=== PATIENT | female | born 1955 | race Caucasian/White ===

== ENCOUNTER 2019-06-15 05:09 | Emergency (ER) | payer BC ==
--- NOTE | 2019-06-15 05:52 | EDM.PDOC ---
ED HPI GENERAL MEDICAL PROBLEM - General Chief Complaint: General Stated Complaint: L knee pain Time Seen by Provider: 06/15/19 05:42 Source of Information: Reports: Patient, Significant Other History Limitations: Reports: No Limitations - History of Present Illness INITIAL COMMENTS - FREE TEXT/NARRATIVE: Patient presents a little over 36 hours S/P left total knee arthroplasty with 10 /10 anterior knee pain. She says she was discharged yesterday from [facility] and felt good then. She was discharged on Tramadol and aspirin. We reviewed her discharge papers and she isn't scheduled to begin PT until next Tuesday, a full week from her surgery. She is using her LUIS M hose except at night. She denies any fever, dyspnea or numbness. She says she has no posterior leg or knee pain. She tells me she called the [facility] during the night wondering what to do and they told her to come to nearest ER for pain control because her block must be wearing off. She didn't sleep much, about an hour, so came to ER around 5:00 AM. - Related Data Allergies Allergy/AdvReac Type Severity Reaction Status Date / Time Penicillins Allergy Rash Verified 06/15/19 05:28 Home Meds: Home Meds ALPRAZolam [Alprazolam] 0.25 mg PO Q12H PRN 06/15/19 [History] Acetaminophen 650 mg PO Q4H PRN 06/15/19 [History] Aspirin [Aspirin EC] 325 mg PO BID 06/15/19 [History] Cholecalciferol (Vitamin D3) [Vitamin D3] 2,000 units PO DAILY 06/15/19 [History ] Escitalopram [Lexapro] 10 mg PO DAILY 06/15/19 [History] Ketoprofen 1 applic TOP ASDIRECTED PRN 06/15/19 [History] Metoprolol Succinate [Toprol XL 50mg] 50 mg PO DAILY 06/15/19 [History] Naproxen 500 mg PO ASDIRECTED PRN 06/15/19 [History] Polyethylene Glycol [Polyox Wsr-301] 17 gm PO DAILY PRN 06/15/19 [History] Sennosides/Docusate Sodium [Senna Plus Tablet] 1 tab PO BID PRN 06/15/19 [ History] hydroCHLOROthiazide [Hydrochlorothiazide] 12.5 mg PO DAILY 06/15/19 [History] traMADol HCl [Tramadol HCl] 50 - 100 mg PO Q6H PRN 06/15/19 [History] ED ROS GENERAL - Review of Systems Review Of Systems: See Below Constitutional: Denies: Fever, Chills, Malaise, Weakness HEENT: Reports: No Symptoms Respiratory: Denies: Shortness of Breath, Pleuritic Chest Pain Cardiovascular: Denies: Chest Pain, Lightheadedness, Syncope Endocrine: Reports: No Symptoms GI/Abdominal: Denies: Abdominal Pain, Vomiting : Denies: Dysuria, Flank Pain Musculoskeletal: Reports: Joint Pain (see HPI) Skin: Denies: Cyanosis, Jaundice, Mottled, Pallor, Diaphoresis Neurological: Denies: Confusion, Numbness, Seizure, Syncope, Trouble Speaking, Weakness Psychiatric: Denies: Agitation, Anxiety ED EXAM, GENERAL - Physical Exam Exam: See Below Exam Limited By: No Limitations General Appearance: Alert, WD/WN, No Apparent Distress Eye Exam: Bilateral Eye: EOMI, Normal Inspection, PERRL Ears: Normal External Exam, Hearing Grossly Normal Nose: Normal Inspection, No Blood Throat/Mouth: Normal Inspection, Normal Lips, Normal Voice, No Airway Compromise Head: Atraumatic, Normocephalic Neck: Normal Inspection, Full Range of Motion Respiratory/Chest: No Respiratory Distress, Lungs Clear, Normal Breath Sounds, No Accessory Muscle Use Cardiovascular: Regular Rate, Rhythm, No Murmur Back Exam: Normal Inspection, Full Range of Motion. No: CVA Tenderness (L), CVA Tenderness (R) Extremities: Normal Inspection (except left knee), Normal Range of Motion ( except left knee), No Pedal Edema, Normal Capillary Refill, Other (Left knee has no erythema but moderate swelling. No swelling at foot or ankle. EHL/FHL are intact. Distal CMS is intact. No pain with palpation of posterior leg and knee. She can tolerate knee flexion to 60 degrees. Anterior incision with narrow bandage in place without erythema. Other extremities are normal/okay.). No: Increased Warmth, Mottled, Pallor Neurological: Alert, Oriented, Normal Cognition, No Motor/Sensory Deficits Psychiatric: Normal Affect, Normal Mood Skin Exam: Warm, Dry, Intact, Normal Color, No Rash Course - Re-Assessments/Exams Free Text/Narrative Re-Assessment/Exam: 06/15/19 06:33 Patient is stable. I called and spoke with on-call ortho at [facility] in [place] and happened to get pt's surgeon, Dr. Villa. I discussed case with him and he said she should have been discharged on Percocet. He will also look into why her PT isn't going to start until next week. He assured me that his nurse will call the patient this morning during clinic hours. He said Percocet and Toradol now is good. Will give Toradol 60 mg IM. She has stopped Aleve and Ibuprofen. Will also give 2 tabs of Percocet 5/325 now. We helped her get her LUIS M hose on. Patient discharged in stable condition. Departure - Departure Time of Disposition: 06:23 Disposition: Home, Self-Care 01 Condition: Good Clinical Impression: Left anterior knee pain S/P total knee arthroplasty Qualifiers: Laterality: left Qualified Code(s): Z96.652 - Presence of left artificial knee joint - Discharge Information Additional Instructions: 1. Take pain medications as directed by your orthopedic doctor. They will call you this morning. If you don't hear from them by 9:00 AM call them to make sure they call in your prescription before the weekend. 2. Also ask them about: -when to start physical therapy; Hattie has PT at [facility] if others are not available when desired -if you should wear the LUIS M hose at night for better control of swelling 3. Ice, elevate and use TEDs and YASSINE as directed to control swelling.
[2019-06-15] MEDS ORDERED: Acetaminophen/oxyCODONE 325-5 MG Tab PO ONE (06:13)
[2019-06-15] MEDS ORDERED: Ketorolac 60 MG/2 ML SDV IM ONE (06:13)
== END 2019-06-15 06:45 | disposition home or self-care (01) ==
LOC: KA.ED 05:09
DX: M25.562 Pain in left knee (principal); Z96.652 Presence of left artificial knee joint; Z88.0 Allergy status to penicillin; Z79.82 Long term (current) use of aspirin
CPT/HCPCS: 96372; 99283; A9270-GY; J1885

== ENCOUNTER 2021-08-10 13:04 | Emergency (ER) | payer MEDICARE, BC ==
[2021-08-10 14:04] LABS: ANION GAP 17.6 mmol/L (5-15); CHLORIDE,CL 102 mmol/L (98-107); SODIUM,NA 139 mmol/L (136-145)
--- NOTE | 2021-08-10 14:14 | EDM.PDOC ---
ED HPI GENERAL MEDICAL PROBLEM - General Chief Complaint: General Stated Complaint: ELEVATED B/P AND DIZZINESS Time Seen by Provider: 08/10/21 13:41 Source of Information: Reports: Patient, Significant Other History Limitations: Reports: No Limitations - History of Present Illness INITIAL COMMENTS - FREE TEXT/NARRATIVE: Patient presents with dizziness/lightheadedness when she stands up from lying or sitting; it lasts up to 2 minutes. This has been occurring frequently for a week. She has also had a pain/ache across shoulder blades; it sometimes can be triggered by raising her arms, which then also causes dizziness. Today she had a "burning" sensation in right arm that came across her chest to upper abdomen that lasted nearly 1 minute. No chest pain, left arm/neck/jaw pain, vomiting, diarrhea. Six weeks ago she had a knee replacement and was taking oxycodone regularly which caused frequent vomiting but not in last 3 weeks. She tells me she doesn't drink much water; probably not even a 16 oz bottle a day. She is thirsty now and would drink some water. I brought her two 10-oz bottles. She used to be a smoker. 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: Other Medication(s) Other Treatments LAND ECONOMIST: xanax - Related Data Allergies Allergy/AdvReac Type Severity Reaction Status Date / Time No Known Drug Allergies Allergy Cannot Verified 08/10/21 13:06 Remember Home Meds: Home Meds ALPRAZolam [Alprazolam] 0.25 mg PO Q12H PRN 06/15/19 [History] Acetaminophen 650 mg PO Q4H PRN 06/15/19 [History] Escitalopram [Lexapro] 10 mg PO DAILY 06/15/19 [History] Ketoprofen 1 applic TOP ASDIRECTED PRN 06/15/19 [History] Metoprolol Succinate [Toprol XL 50mg] 50 mg PO DAILY 06/15/19 [History] hydroCHLOROthiazide [Hydrochlorothiazide] 12.5 mg PO DAILY 06/15/19 [History] Alendronate [Fosamax] 5 mg PO WE 08/10/21 [History] Losartan [Cozaar] 50 mg PO DAILY 08/10/21 [History] atorvaSTATin [Lipitor] 10 mg PO DAILY 08/10/21 [History] oxyCODONE 5 mg PO Q4H PRN 08/10/21 [History] Past Medical History Other MEDICAL INTERN History: tubal ligation - Past Surgical History Musculoskeletal Surgical 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: Knee Replacement Other Musculoskeletal Surgeries/Procedures:: Left knee replacement on 06/13/19 Social & Family History - Caffeine Use Caffeine Use: Reports: Coffee ED ROS GENERAL - Review of Systems Review Of Systems: See Below Constitutional: Denies: Fever, Chills HEENT: Denies: Ear Pain, Throat Pain, Vision Change Respiratory: Reports: Shortness of Breath (brieffly a couple times). Denies: Cough Cardiovascular: Reports: Lightheadedness. Denies: Chest Pain, Syncope GI/Abdominal: Denies: Diarrhea, Vomiting : Denies: Dysuria, Flank Pain Musculoskeletal: Denies: Neck Pain Skin: Denies: Cyanosis, Jaundice, Mottled, Pallor, Diaphoresis Neurological: Reports: Dizziness. Denies: Confusion, Seizure, Syncope, Trouble Speaking, Difficulty Walking Psychiatric: Reports: Anxiety. Denies: Agitation, Confusion ED EXAM, GENERAL - Physical Exam Exam: See Below Exam Limited By: No Limitations General Appearance: Alert, WD/WN, No Apparent Distress, Anxious Eye Exam: Bilateral Eye: EOMI, Normal Inspection, PERRL Ears: Normal External Exam, Hearing Grossly Normal Nose: Normal Inspection, No Blood Throat/Mouth: Normal Inspection, Normal Lips, Normal Voice, No Airway Compromise Head: Atraumatic, Normocephalic Neck: Normal Inspection, Full Range of Motion Respiratory/Chest: No Respiratory Distress, Lungs Clear, Normal Breath Sounds, No Accessory Muscle Use Cardiovascular: Regular Rate, Rhythm, No Murmur GI/Abdominal: Normal Bowel Sounds, Soft, Non-Tender, No Organomegaly, No Distention, No Abnormal Bruit, No Mass Back Exam: Full Range of Motion, Muscle Spasm (Traps are tight across shoulders). No: CVA Tenderness (L), CVA Tenderness (R), Paraspinal Tenderness, Vertebral Tenderness Extremities: Normal Inspection, Normal Range of Motion Neurological: Alert, Oriented, Normal Cognition, No Motor/Sensory Deficits Psychiatric: Normal Affect, Anxious Skin Exam: Warm, Dry, Intact, Normal Color, No Rash #1 Interpretation EKG Date: 08/10/21 Rhythm: NSR Rate (Beats/Min): 79 P-Wave: Present QRS: Other (Q waves in V1, V2) ST-T: Normal QT: Normal Course - Vital Signs Last Recorded V/S: Last Vital Signs Temp 98.3 F 08/10/21 13:06 Pulse 85 08/10/21 13:06 Resp 14 08/10/21 13:06 BP 152/82 H 08/10/21 13:06 Pulse Ox 98 08/10/21 13:06 Orthostatic Blood Pressure [ 116/67 Standing] Orthostatic Blood Pressure [ 113/68 Sitting] Orthostatic Blood Pressure [ 131/82 Supine] - Orders/Labs/Meds Orders: Active Orders 24 hr Category Date Time Status Orthostatic Vital Signs [RC] ASDIRECTED Care 08/10/21 13:20 Active EKG 12 Lead [EK] Stat Ther 08/10/21 13:20 Ordered Labs: Laboratory Tests 08/10/21 08/10/21 08/10/21 Range/Units 13:35 13:35 13:35 WBC 6.46 (5.00-10.00) 10^3/uL RBC 3.99 (3.80-5.50) 10^6/uL Hgb 12.0 (12.0-16.0) g/dL Hct 36.0 L (37.0-47.0) % MCV 90.2 (82.0-92.0) fL MCH 30.1 (27.0-31.0) pg MCHC 33.3 (32.0-36.0) g/dL RDW 12.7 (11.5-14.5) % Plt Count 211 (150-400) 10^3/uL MPV 9.8 (7.4-10.4) fL Immature Gran % (Auto) 0.2 (0.0-5.0) % Neut % (Auto) 64.6 (50.0-70.0) % Lymph % (Auto) 25.4 (20.0-40.0) % Duval % (Auto) 7.9 (2.0-8.0) % Eos % (Auto) 1.1 (1.0-3.0) % Baso % (Auto) 0.8 (0.0-1.0) % Neut # (Auto) 4.18 (2.50-7.00) 10^3/uL Lymph # (Auto) 1.64 (1.00-4.00) 10^3/uL Duval # (Auto) 0.51 (0.10-0.80) 10^3/uL Eos # (Auto) 0.07 L (0.10-0.30) 10^3/uL Baso # (Auto) 0.05 (0.00-0.10) 10^3/uL Immature Gran # (Auto) 0.01 (0.00-0.50) 10^3/uL Sodium 139 (136-145) mmol/L Potassium 3.9 (3.5-5.1) mmol/L Chloride 102 (98-107) mmol/L Carbon Dioxide 23.3 (21.0-32.0) mmol/L Anion Gap 17.6 H (5-15) mmol/L BUN 11 (7-18) mg/dL Creatinine 0.81 (0.51-1.17) mg/dL Est Cr Clr Drug Dosing 51.55 mL/min Estimated GFR (MDRD) > 60 mL/min Glucose 91 (70-140) mg/dL Calcium 9.1 (8.7-10.3) mg/dL Troponin I High Sens 7.700 (0-51.000) pg/mL - Re-Assessments/Exams Free Text/Narrative Re-Assessment/Exam: 08/10/21 14:18 Orthostatic pressures showed a significant drop with standing and sitting compared to supine. 08/10/21 15:00 Patient drank 20 oz of water. Labs, CXR, EKG okay. She is feeling much better now. I watched while she stood up from exam table; she developed a little lightheadedness for about 30 seconds then resolved. We discussed findings and likely cause of dehydration/hypovolemia. She hasn't ever heard this before. I advised her to drink 8 cups of water daily. She made an appointment with Misa at [facility] tomorrow so will recheck there. Discharged to home in stable condition. Departure - Departure Time of Disposition: 14:55 Disposition: Home, Self-Care 01 Condition: Good Clinical Impression: Hypovolemia dehydration, Anxiety - Discharge Information Referrals: Vivian Parks MD [Primary Care Provider] - Forms: ED Department Discharge Additional Instructions: Drink 8 cups of water daily. Follow up in 1-2 days with your PCP if symptoms persist. If worsening, check in clinic or ER as needed. Sepsis Event Note (ED) - Evaluation Sepsis Screening Result: No Definite Risk - Focused Exam Vital Signs: Vital Signs Temp Pulse Resp BP Pulse Ox 08/10/21 13:06 98.3 F 85 14 152/82 H 98 - My Orders Last 24 Hours: My Active Orders 08/10/21 13:20 Orthostatic Vital Signs [RC] ASDIRECTED EKG 12 Lead [EK] Stat - Assessment/Plan Last 24 Hours: My Active Orders 08/10/21 13:20 Orthostatic Vital Signs [RC] ASDIRECTED EKG 12 Lead [EK] Stat
--- NOTE | 2021-08-10 14:37 | CR ---
[id number] RAD/RAD Chest PA And Lateral EXAM: RAD Chest PA And Lateral CLINICAL DATA: SHORTNESS OF BREATH COMPARISON: No previous similar exam is available. FINDINGS: The lungs are clear. The cardiomediastinal contour is normal. The regional bones and soft tissues are unremarkable. IMPRESSION: NO ACUTE PROCESS. Josiah Castaneda MD 08/10/21 [id number] Thank you for allowing us to participate in the care of your patient.
== END 2021-08-10 15:06 | disposition home or self-care (01) ==
LOC: KA.ED 13:04
DX: E86.0 Dehydration (principal); E86.1 Hypovolemia; F41.9 Anxiety disorder, unspecified
CPT/HCPCS: 36415; 71046; 80048; 84484; 85025; 93005; 93010; 99284; 99284-25

== ENCOUNTER 2021-09-13 03:58 | Emergency (ER) | payer MEDICARE, BC ==
[2021-09-13] MEDS: Sodium Chloride 0.9% 10 ML Syringe FLUSH PRN (04:30)
--- NOTE | 2021-09-13 04:32 | EDM.PDOC ---
ED HPI GENERAL MEDICAL PROBLEM - General Chief Complaint: Headache Stated Complaint: HEADACHE Time Seen by Provider: 09/13/21 04:10 Source of Information: Reports: Patient History Limitations: Reports: No Limitations - History of Present Illness INITIAL COMMENTS - FREE TEXT/NARRATIVE: 66 YO WF PRESENTS TO ER COMPLAINING OF LEFT FRONTAL HEADACHE WHICH BEGAN YESTERDAY AROUND 3PM. PT WITH PMH OF MIGRAINE HEADACHES BUT STATES SHE HASN'T HAD ONE IN AWHILE. PT REPORTS SHE CAN TYPICALLY GET RID OF HEADACHE WITH EXCEDRIN MIGRAINE BUT THIS TIME SHE HASN'T BEEN ABLE TO TAKE IT WITHOUT VOMITING. PT DENIES HEADACHE INJURY, NO FEVER/CHILLS, NO URI SYMPTOMS, AND HAS BEEN COMPLIANT WITH HER HOME BP MEDICATIONS. PT REPORTS PAIN IS BEHIND HER LEFT EYE WITH ASSOCIATED NAUSEA/VOMITING. Onset Date: 09/12/21 Onset Time: 15:00 Duration: Hour(s): (13) Location: Reports: Head Quality: Reports: Ache Severity: Moderate Improves with: Reports: None Worsens with: Reports: Other (VOMITINGG) Associated Symptoms: Reports: No Other Symptoms, Headaches, Nausea/Vomiting. Denies: Confusion, Cough, Fever/Chills, Weakness Headache Pain Score (Numeric/FACES): 8 - Related Data Allergies Allergy/AdvReac Type Severity Reaction Status Date / Time No Known Drug Allergies Allergy Cannot Verified 09/13/21 04:03 Remember Home Meds: Home Meds ALPRAZolam [Alprazolam] 0.25 mg PO Q12H PRN 06/15/19 [History] Acetaminophen 650 mg PO Q4H PRN 06/15/19 [History] Escitalopram [Lexapro] 10 mg PO DAILY 06/15/19 [History] Ketoprofen 1 applic TOP ASDIRECTED PRN 06/15/19 [History] Alendronate [Fosamax] 5 mg PO WE 08/10/21 [History] Losartan [Cozaar] 50 mg PO DAILY 08/10/21 [History] atorvaSTATin [Lipitor] 10 mg PO DAILY 08/10/21 [History] Ondansetron [Zofran ODT] 4 mg PO Q6H PRN #10 tab.dis 09/13/21 [Rx] Past Medical History HEENT 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: Impaired Vision Cardiovascular 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: High Cholesterol, Hypertension Gastrointestinal 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: Gastritis, GERD 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 CONSULTANT 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: 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 (See Below) Other INFORMATICS CONSULTANT History: tubal ligation Psychiatric 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: Anxiety - Past Surgical History Musculoskeletal Surgical 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: Knee Replacement Other Musculoskeletal Surgeries/Procedures:: Left knee replacement on 06/13/19 Social & Family History - Tobacco Use Tobacco Use Status *Q: Former Tobacco User Used Tobacco, but Quit: Yes Month/Year Tobacco Last Used: 5 years ago - Caffeine Use Caffeine Use: Reports: Coffee - Recreational Drug Use Recreational Drug Use: No ED ROS GENERAL - Review of Systems Review Of Systems: See Below Constitutional: Reports: No Symptoms HEENT: Reports: No Symptoms Respiratory: Reports: No Symptoms Cardiovascular: Reports: No Symptoms Endocrine: Reports: No Symptoms GI/Abdominal: Reports: Nausea, Vomiting : Reports: No Symptoms Musculoskeletal: Reports: No Symptoms Skin: Reports: No Symptoms Neurological: Reports: Headache Psychiatric: Reports: No Symptoms Hematologic/Lymphatic: Reports: No Symptoms Immunologic: Reports: No Symptoms - Physical Exam Exam: See Below Exam Limited By: No Limitations General Appearance: Alert, WD/WN, No Apparent Distress Eye Exam: Bilateral Eye: EOMI, PERRL Nose: Normal Inspection, Normal Mucosa, No Blood Throat/Mouth: Normal Inspection, Normal Lips, Normal Teeth, Normal Gums, Normal Oropharynx, Normal Voice, No Airway Compromise Head Exam: Atraumatic, Normocephalic Neck: Normal Inspection, Supple, Non-Tender, Full Range of Motion Respiratory/Chest: No Respiratory Distress, Lungs Clear, Normal Breath Sounds, No Accessory Muscle Use, Chest Non-Tender Cardiovascular: Normal Peripheral Pulses, Regular Rate, Rhythm, No Edema, No Gallop, No JVD, No Murmur, No Rub GI/Abdominal: Normal Bowel Sounds, Soft, Non-Tender, No Organomegaly, No Distention, No Abnormal Bruit, No Mass Neuro Exam (Abbreviated): Alert, Oriented, CN II-XII Intact, Normal Cognition, Normal Gait, No Motor/Sensory Deficits Extremities: Normal Inspection, Normal Range of Motion, Non-Tender, No Pedal Edema, Normal Capillary Refill Psychiatric: Normal Affect, Normal Mood Skin Exam: Warm, Dry, Intact, Normal Color, No Rash Course - Vital Signs Last Recorded V/S: Last Vital Signs Temp 97.7 F 09/13/21 03:59 Pulse 83 09/13/21 03:59 Resp 20 09/13/21 03:59 BP 147/88 H 09/13/21 03:59 Pulse Ox 99 09/13/21 03:59 - Orders/Labs/Meds Orders: Active Orders 24 hr Category Date Time Status Peripheral IV Care [RC] . DIRECTED Care 09/13/21 04:25 Ordered Sodium Chloride 0.9% @ 999 MLS/HR (1000ml) Med 09/13/21 04:32 Ordered Sodium Chloride 0.9% [Normal Saline] 1,000 ml IV .BOLUS Sodium Chloride 0.9% [Saline Flush] Med 09/13/21 04:25 Ordered 10 ml FLUSH Q8HR PRN Peripheral IV Insertion Adult [OM.PC] Routine Oth 09/13/21 04:25 Ordered Medication Orders Sodium Chloride (Normal Saline) 1,000 mls @ 999 mls/hr IV .BOLUS ONE Stop: 09/13/21 05:32 Last Admin: 09/13/21 04:45 Dose: 999 mls/hr Documented by: Sodium Chloride (Sodium Chloride 0.9% 10 Ml Syringe) 10 ml FLUSH Q8HR PRN PRN Reason: keep vein open Last Admin: 09/13/21 04:30 Dose: 10 ml Documented by: Meds: Medications Generic Name Dose Route Start Last Admin Trade Name Freq PRN Reason Stop Dose Admin Sodium Chloride 1,000 mls @ 999 mls/hr 09/13/21 04:32 09/13/21 04:45 Normal Saline IV 09/13/21 05:32 999 mls/hr .BOLUS ONE Administration Sodium Chloride 10 ml 09/13/21 04:25 09/13/21 04:30 Sodium Chloride 0.9% 10 Ml Syringe FLUSH 10 ml Q8HR PRN Administration keep vein open Discontinued Medications Generic Name Dose Route Start Last Admin Trade Name Freq PRN Reason Stop Dose Admin Diphenhydramine HCl 50 mg 09/13/21 04:25 09/13/21 04:44 Diphenhydramine 50 Mg/Ml Sdv IVPUSH 09/13/21 04:26 50 mg ONETIME ONE Administration Ketorolac Tromethamine 30 mg 09/13/21 04:25 09/13/21 04:38 Ketorolac 30 Mg/Ml Sdv IVPUSH 09/13/21 04:26 30 mg ONETIME ONE Administration Ondansetron HCl 4 mg 09/13/21 04:25 09/13/21 04:37 Ondansetron 4 Mg/2 Ml Sdv IVPUSH 09/13/21 04:26 4 mg ONETIME ONE Administration - Re-Assessments/Exams Free Text/Narrative Re-Assessment/Exam: 09/13/21 05:00 PT REPORTS SIGNIFICANT IMPROVEMENT AFTER IV MEDICATIONS. PT REPORTS NAUSEA/VOMITING RESOLVED, HEADACHE IS 1-2/10. PT RESTING COMFORTABLY 09/13/21 05:02 PT DISCHARGED WITH ZOFRAN 4MG ODT #2 TAKES Q6 PRN VOMITING. PT ALSO GIVEN PRESCRIPTION FOR FUTURE EPISODES WITH INSTRUCTIONS FOR ADMINISTRATION AT HOME Departure - Departure Time of Disposition: 05:03 Disposition: Home, Self-Care 01 Condition: Good Clinical Impression: Migraine - Discharge Information Prescriptions: Ondansetron [Zofran ODT] 4 mg PO Q6H PRN #10 tab.dis PRN Reason: Vomiting Instructions: Migraine Headache, [id number] Forms: ED Department Discharge Additional Instructions: 1. DISCHARGE HOME 2. REST TODAY AND INCREASE ORAL FLUIDS 3. ZOFRAN 4MG ODT SL EVERY 6 HOURS NEEDED FOR VOMITING 4. FOLLOW UP WITH PCP NEEDED FOR FURTHER EVALUATION AND TREATMENT 5. RETURN TO ER FOR WORSENING SYMPTOMS Sepsis Event Note (ED) - Evaluation Sepsis Screening Result: No Definite Risk - Focused Exam Vital Signs: Vital Signs Temp Pulse Resp BP Pulse Ox 09/13/21 03:59 97.7 F 83 20 147/88 H 99 - My Orders Last 24 Hours: My Active Orders 09/13/21 04:25 Peripheral IV Care [RC] . DIRECTED Sodium Chloride 0.9% [Saline Flush] 10 ml FLUSH Q8HR PRN Peripheral IV Insertion Adult [OM.PC] Routine 09/13/21 04:32 Sodium Chloride 0.9% @ 999 MLS/HR (1000ml) Sodium Chloride 0.9% [Normal Saline] 1,000 ml IV .BOLUS - Assessment/Plan Last 24 Hours: My Active Orders 09/13/21 04:25 Peripheral IV Care [RC] . DIRECTED Sodium Chloride 0.9% [Saline Flush] 10 ml FLUSH Q8HR PRN Peripheral IV Insertion Adult [OM.PC] Routine 09/13/21 04:32 Sodium Chloride 0.9% @ 999 MLS/HR (1000ml) Sodium Chloride 0.9% [Normal Saline] 1,000 ml IV .BOLUS Assessment:: 1. MIGRAINE HEADACHE Plan: 1. DISCHARGE HOME 2. REST TODAY AND INCREASE ORAL FLUIDS 3. ZOFRAN 4MG ODT SL EVERY 6 HOURS NEEDED FOR VOMITING 4. FOLLOW UP WITH PCP NEEDED FOR FURTHER EVALUATION AND TREATMENT 5. RETURN TO ER FOR WORSENING SYMPTOMS
[2021-09-13] MEDS: Ondansetron 4 MG/2 ML SDV IVPUSH ONE (04:37)
[2021-09-13] MEDS: Ketorolac 30 MG/ML SDV IVPUSH ONE (04:38)
[2021-09-13] MEDS: diphenhydrAMINE 50 MG/ML SDV IVPUSH ONE (04:44)
[2021-09-13] MEDS: Sodium Chloride 0.9% 1,000 ML IV ONE (04:45)
[2021-09-13] MEDS: Ondansetron 4 MG Tab.DIS PO SCH (05:21)
[2021-09-13] MEDS: Ondansetron 4 MG Tab.DIS PO ONE (05:22)
== END 2021-09-13 05:55 | disposition home or self-care (01) ==
LOC: KA.ED 03:58
DX: G43.909 Migraine, unspecified, not intractable, without status migrainosus (principal); E78.00 Pure hypercholesterolemia, unspecified; I10 Essential (primary) hypertension; Z87.891 Personal history of nicotine dependence; Z79.899 Other long term (current) drug therapy
CPT/HCPCS: 96374; 96375; 99283; 99283-25; A9270-GY; J1200; J1885; J2405; J7030

== ENCOUNTER 2023-05-06 18:15 | Emergency (ER) | payer BC, MEDICARE ==
[2023-05-06] MEDS ORDERED: Sodium Chloride 0.9% 1,000 ML IV ONE (18:28)
[2023-05-06] MEDS ORDERED: Sodium Chloride 0.9% 10 ML Syringe FLUSH PRN (18:54)
[2023-05-06 19:00] LABS: BASOPHILS ABSOLUTE AUTO 0.03 10^3/uL (0.00-0.10); BASOPHILS PERCENT AUTO 0.4 % (0.0-1.0); EOSINOPHILS ABSOLUTE AUTO 0.09 10^3/uL (0.10-0.30); EOSINOPHILS PERCENT AUTO 1.1 % (1.0-3.0); HEMATOCRIT 38.1 % (37.0-47.0); HEMOGLOBIN 12.9 g/dL (12.0-16.0); IMMATURE GRAN ABSOLUTE AUTO 0.03 10^3/uL (0.00-0.50); IMMATURE GRAN PERCENT AUTO 0.4 % (0.0-5.0); LYMPHOCYTES ABSOLUTE AUTO 2.26 10^3/uL (1.00-4.00); LYMPHOCYTES PERCENT AUTO 28.6 % (20.0-40.0); MEAN CORPUSCULAR HEMOGLOBIN 29.7 pg (27.0-31.0); MEAN CORPUSCULAR HGB CONC 33.9 g/dL (32.0-36.0); MEAN CORPUSCULAR VOLUME 87.8 fL (82.0-92.0); MEAN PLATELET VOLUME 10.6 fL (7.4-10.4); MONOCYTES ABSOLUTE AUTO 0.64 10^3/uL (0.10-0.80); MONOCYTES PERCENT AUTO 8.1 % (2.0-8.0); NEUTROPHILS ABSOLUTE AUTO 4.84 10^3/uL (2.50-7.00); NEUTROPHILS PERCENT AUTO 61.4 % (50.0-70.0); PLATELET COUNT,PLT 239 10^3/uL (150-400); RED BLOOD CELL COUNT 4.34 10^6/uL (3.80-5.50); WHITE BLOOD CELL COUNT,WBC 7.89 10^3/uL (5.00-10.00)
[2023-05-06 19:12] LABS: ALBUMIN 3.81 g/dL (3.40-5.00); ANION GAP 16.8 mmol/L (5-15); BILIRUBIN TOTAL 0.4 mg/dL (0.2-1.0); CARBON DIOXIDE,CO2 23.8 mmol/L (21.0-32.0); CREATININE 0.98 mg/dL (0.51-1.17); EST CRCL DRUG DOSING (CG) 42.03 mL/min; POTASSIUM,K 3.6 mmol/L (3.5-5.1); PROTEIN TOTAL,TP 7.2 g/dL (6.4-8.2)
== END 2023-05-06 19:15 ==
LOC: KA.ED 18:15
DX: T42.4X2A Poisoning by benzodiazepines, intentional self-harm, initial encounter (principal); F32.A Depression, unspecified; F41.9 Anxiety disorder, unspecified; E78.00 Pure hypercholesterolemia, unspecified; I10 Essential (primary) hypertension; K21.9 Gastro-esophageal reflux disease without esophagitis; Z88.0 Allergy status to penicillin; Z79.899 Other long term (current) drug therapy
CPT/HCPCS: 80053; 85025; 93005; 93010; 99284; 99285; J7030

== ENCOUNTER 2024-11-22 12:34 | Emergency (ER) | payer MEDICARE ==
[2024-11-22] MEDS ORDERED: Sodium Chloride 0.9% 10 ML Syringe FLUSH PRN (12:38)
[2024-11-22 12:47] LABS: EOSINOPHILS ABSOLUTE AUTO 0.07 10^3/uL (0.10-0.30); EOSINOPHILS PERCENT AUTO 0.8 % (1.0-3.0); HEMATOCRIT 41.1 % (37.0-47.0); HEMOGLOBIN 14.3 g/dL (12.0-16.0); IMMATURE GRAN ABSOLUTE AUTO 0.04 10^3/uL (0.00-0.04); IMMATURE GRAN PERCENT AUTO 0.5 % (0.0-0.4); LYMPHOCYTES ABSOLUTE AUTO 0.29 10^3/uL (1.00-4.00); LYMPHOCYTES PERCENT AUTO 3.5 % (20.0-40.0); MEAN CORPUSCULAR HEMOGLOBIN 30.5 pg (27.0-31.0); MEAN CORPUSCULAR HGB CONC 34.8 g/dL (32.0-36.0); MEAN CORPUSCULAR VOLUME 87.6 fL (82.0-92.0); MEAN PLATELET VOLUME 10.7 fL (7.4-10.4); MONOCYTES ABSOLUTE AUTO 0.09 10^3/uL (0.10-0.80); MONOCYTES PERCENT AUTO 1.1 % (2.0-8.0); NEUTROPHILS ABSOLUTE AUTO 7.82 10^3/uL (2.50-7.00); NEUTROPHILS PERCENT AUTO 94.1 % (50.0-70.0); PLATELET COUNT,PLT 234 10^3/uL (150-400); RED BLOOD CELL COUNT 4.69 10^6/uL (3.80-5.50); WHITE BLOOD CELL COUNT,WBC 8.31 10^3/uL (5.00-10.00)
[2024-11-22] MEDS: Sodium Chloride 0.9% 1,000 ML IV ONE (12:53)
[2024-11-22] MEDS: Famotidine 20 MG/2 ML SDV IVPUSH ONE (12:55)
[2024-11-22] MEDS: Ondansetron 4 MG/2 ML SDV IVPUSH ONE (13:02)
[2024-11-22 13:10] LABS: ALBUMIN 4.55 g/dL (3.40-5.00); ANION GAP 19.4 mmol/L (5-15); BILIRUBIN TOTAL 0.8 mg/dL (0.2-1.0); C-REACTIVE PROTEIN 1.31 mg/dL (0.00-0.50); CALCIUM 9.9 mg/dL (8.7-10.3); CARBON DIOXIDE,CO2 25.1 mmol/L (21.0-32.0); CREATININE 0.72 mg/dL (0.51-1.17); EST CRCL DRUG DOSING (CG) 52.97 mL/min; POTASSIUM,K 3.5 mmol/L (3.5-5.1)
[2024-11-22] MEDS: Iopamidol 755 Mg/ML 100 ML Bottle IV ONE ×2 (13:40→13:41)
[2024-11-22] MEDS: Sodium Chloride 0.9% 50 ML IV SCH (13:41)
[2024-11-22] MEDS ORDERED: Sodium Chloride 0.9% 50 ML IV SCH (13:45)
[2024-11-22] MEDS: LORazepam 2 MG/ML SDV IVPUSH ONE (14:20)
[2024-11-22] MEDS: Dicyclomine 20 MG/2 ML SDV IM ONE (14:21)
== END 2024-11-22 15:08 | disposition home or self-care (01) ==
LOC: KA.ED 12:34 → SUPCPDRO 12:34 → KA.ED 15:08
DX: N80.9 Endometriosis, unspecified (principal); R11.2 Nausea with vomiting, unspecified; I10 Essential (primary) hypertension; E78.00 Pure hypercholesterolemia, unspecified; K21.9 Gastro-esophageal reflux disease without esophagitis; Z79.899 Other long term (current) drug therapy; Z88.0 Allergy status to penicillin
CPT/HCPCS: 36415; 74177; 80053; 82150; 83690; 84484; 85025; 86140; 87428-QW; 93010; 96361; 96372; 96374; 96375; 99284; 99284-25; J0500; J2060; J2405; J3490; J7030; Q9967

== ENCOUNTER 2024-11-23 19:42 | Emergency (ER) | payer MEDICARE ==
[2024-11-23] MEDS ORDERED: Sodium Chloride 0.9% 10 ML Syringe FLUSH PRN (19:44)
[2024-11-23] MEDS ORDERED: Naloxone 0.4 MG/ML SDV IVPUSH PRN (19:45)
[2024-11-23] MEDS: Ondansetron 4 MG/2 ML SDV IVPUSH ONE (20:07)
[2024-11-23] MEDS: HYDROmorphone 1 MG/ML Syringe IVPUSH ONE (20:08)
[2024-11-23] MEDS: Sodium Chloride 0.9% 1,000 ML IV ONE (20:08)
[2024-11-23 20:09] LABS: BASOPHILS ABSOLUTE AUTO 0.03 10^3/uL (0.00-0.10); BASOPHILS PERCENT AUTO 0.3 % (0.0-1.0); EOSINOPHILS ABSOLUTE AUTO 0.04 10^3/uL (0.10-0.30); EOSINOPHILS PERCENT AUTO 0.4 % (1.0-3.0); HEMATOCRIT 40.1 % (37.0-47.0); HEMOGLOBIN 14.1 g/dL (12.0-16.0); IMMATURE GRAN ABSOLUTE AUTO 0.02 10^3/uL (0.00-0.04); IMMATURE GRAN PERCENT AUTO 0.2 % (0.0-0.4); LYMPHOCYTES ABSOLUTE AUTO 0.95 10^3/uL (1.00-4.00); LYMPHOCYTES PERCENT AUTO 9.2 % (20.0-40.0); MEAN CORPUSCULAR HEMOGLOBIN 30.8 pg (27.0-31.0); MEAN CORPUSCULAR HGB CONC 35.2 g/dL (32.0-36.0); MEAN CORPUSCULAR VOLUME 87.6 fL (82.0-92.0); MEAN PLATELET VOLUME 10.7 fL (7.4-10.4); MONOCYTES ABSOLUTE AUTO 0.74 10^3/uL (0.10-0.80); MONOCYTES PERCENT AUTO 7.2 % (2.0-8.0); NEUTROPHILS ABSOLUTE AUTO 8.51 10^3/uL (2.50-7.00); NEUTROPHILS PERCENT AUTO 82.7 % (50.0-70.0); PLATELET COUNT,PLT 225 10^3/uL (150-400); RED BLOOD CELL COUNT 4.58 10^6/uL (3.80-5.50); RED CELL DISTRIBUTION WIDTH 13.1 % (11.5-14.5); WHITE BLOOD CELL COUNT,WBC 10.29 10^3/uL (5.00-10.00)
[2024-11-23 20:23] LABS: ALBUMIN 4.46 g/dL (3.40-5.00); ANION GAP 18.6 mmol/L (5-15); BILIRUBIN TOTAL 0.7 mg/dL (0.2-1.0); C-REACTIVE PROTEIN 3.01 mg/dL (0.00-0.50); CALCIUM 9.9 mg/dL (8.7-10.3); CARBON DIOXIDE,CO2 23.3 mmol/L (21.0-32.0); CREATININE 0.9 mg/dL (0.51-1.17); EST CRCL DRUG DOSING (CG) 42.38 mL/min; POTASSIUM,K 2.9 mmol/L (3.5-5.1); PROTEIN TOTAL,TP 7.9 g/dL (6.4-8.2)
[2024-11-23 21:01] LABS: BILIRUBIN,URINE SMALL (NEGATIVE); COLOR,URINE YELLOW (YELLOW); GLUCOSE,URINE NEGATIVE (NEGATIVE); KETONES,URINE TRACE mg/dL (NEGATIVE); LEUKOCYTE ESTERASE,URINE SMALL (NEGATIVE); NITRITE,URINE NEGATIVE (NEGATIVE); OCCULT BLOOD,URINE SMALL (NEGATIVE); PROTEIN,URINE 100 mg/dL (NEGATIVE)
[2024-11-23 21:04] LABS: APPEARANCE,URINE SLIGHTLY CLOUDY (CLEAR)
[2024-11-23 21:09] LABS: BACTERIA,URINE FEW /HPF (NONE TO FEW); EPITHELIAL CELLS,URINE FEW /LPF; GRANULAR CASTS,URINE RARE; HYALINE CASTS,URINE RARE; MUCUS,URINE FEW /LPF (NEGATIVE); WBC,URINE 30-40 /HPF (0-5)
[2024-11-23] MEDS: HYDROmorphone 2 MG Tab PO PRN (21:45)
[2024-11-23] MEDS: Ondansetron 4 MG Tab.DIS PO ONE (21:46)
== END 2024-11-23 21:53 | disposition home or self-care (01) ==
LOC: KA.ED 19:42
DX: K52.9 Noninfective gastroenteritis and colitis, unspecified (principal); I10 Essential (primary) hypertension; I25.10 Atherosclerotic heart disease of native coronary artery without angina pectoris; E78.00 Pure hypercholesterolemia, unspecified; Z96.653 Presence of artificial knee joint, bilateral; Z88.0 Allergy status to penicillin; Z79.51 Long term (current) use of inhaled steroids; Z79.899 Other long term (current) drug therapy
CPT/HCPCS: 80053; 81001; 82150; 83690; 85025; 86140; 87086; 96361; 96374; 96375; 99284; A9270; J1171; J2405; J7030

== ENCOUNTER 2025-02-21 14:12 | Emergency (ER) | payer MEDICARE ==
[2025-02-21] MEDS ORDERED: Sodium Chloride 0.9% 10 ML Syringe FLUSH PRN (14:21)
[2025-02-21] MEDS ORDERED: Naloxone 0.4 MG/ML SDV IVPUSH PRN (14:24)
[2025-02-21 14:30] LABS: BASOPHILS ABSOLUTE AUTO 0.02 10^3/uL (0.00-0.10); BASOPHILS PERCENT AUTO 0.3 % (0.0-1.0); HEMATOCRIT 38.7 % (37.0-47.0); HEMOGLOBIN 13.5 g/dL (12.0-16.0); IMMATURE GRAN ABSOLUTE AUTO 0.02 10^3/uL (0.00-0.04); IMMATURE GRAN PERCENT AUTO 0.3 % (0.0-0.4); LYMPHOCYTES PERCENT AUTO 10.1 % (20.0-40.0); MEAN CORPUSCULAR HEMOGLOBIN 30.3 pg (27.0-31.0); MEAN CORPUSCULAR HGB CONC 34.9 g/dL (32.0-36.0); MEAN CORPUSCULAR VOLUME 86.8 fL (82.0-92.0); MEAN PLATELET VOLUME 10.3 fL (7.4-10.4); MONOCYTES ABSOLUTE AUTO 0.17 10^3/uL (0.10-0.80); MONOCYTES PERCENT AUTO 2.1 % (2.0-8.0); NEUTROPHILS ABSOLUTE AUTO 6.91 10^3/uL (2.50-7.00); NEUTROPHILS PERCENT AUTO 87.2 % (50.0-70.0); PLATELET COUNT,PLT 239 10^3/uL (150-400); RED BLOOD CELL COUNT 4.46 10^6/uL (3.80-5.50); RED CELL DISTRIBUTION WIDTH 12.2 % (11.5-14.5); WHITE BLOOD CELL COUNT,WBC 7.92 10^3/uL (5.00-10.00)
[2025-02-21] MEDS: Sodium Chloride 0.9% 1,000 ML IV ONE (14:34)
[2025-02-21] MEDS: HYDROmorphone 1 MG/ML Syringe IVPUSH ONE (14:34)
[2025-02-21] MEDS: Ondansetron 4 MG/2 ML SDV IVPUSH ONE (14:36)
[2025-02-21] MEDS: Alum Hydrox/Mag Hydrox/Simeth 30 ML, Lidocaine 2% 15 ML PO ONE (14:48)
[2025-02-21] MEDS: Famotidine 20 MG/2 ML SDV IVPUSH ONE (14:49)
[2025-02-21 14:50] LABS: ALANINE AMINOTRANSFERASE,ALT 28 U/L (14-63); ALKALINE PHOSPHATASE 81 U/L (46-116); AMYLASE 114 U/L (25-125); ANION GAP 17.8 mmol/L (5-15); ASPARTATE AMNIOTRANSFERASE,AST 22 U/L (15-37); BILIRUBIN TOTAL 0.8 mg/dL (0.2-1.0); BLOOD UREA NITROGEN,BUN 16 mg/dL (7-18); CALCIUM 10.1 mg/dL (8.7-10.3); CARBON DIOXIDE,CO2 22.8 mmol/L (21.0-32.0); CHLORIDE,CL 102 mmol/L (98-107); GLUCOSE RANDOM 143 mg/dL (70-140); LIPASE 40 U/L (16-77); POTASSIUM,K 3.6 mmol/L (3.5-5.1); PROTEIN TOTAL,TP 7.6 g/dL (6.4-8.2); SODIUM,NA 139 mmol/L (136-145)
[2025-02-21 14:53] LABS: ESTIMATED GFR 69 mL/min (>=60)
[2025-02-21] MEDS: busPIRone 10 MG Tab PO ONE (16:03)
[2025-02-21] MEDS: ALPRAZolam 0.25 MG Tab PO ONE (16:03)
[2025-02-21] MEDS: Pantoprazole 40 MG Tab.CR PO ONE (16:36)
[2025-02-21] MEDS ORDERED: Ondansetron 4 MG/2 ML SDV ONE (18:12)
== END 2025-02-21 16:55 | disposition home or self-care (01) ==
LOC: KA.ED 14:12
DX: K21.9 Gastro-esophageal reflux disease without esophagitis (principal); E78.00 Pure hypercholesterolemia, unspecified; I25.10 Atherosclerotic heart disease of native coronary artery without angina pectoris; I10 Essential (primary) hypertension; Z88.0 Allergy status to penicillin; Z79.899 Other long term (current) drug therapy; Z87.891 Personal history of nicotine dependence
CPT/HCPCS: 36415; 80053; 82150; 83605; 83690; 84484; 85025; 96361; 96374; 96375; 99285-25; A9270-GY; J1171; J2405; J7030

== ENCOUNTER 2025-02-22 14:24 | Emergency (ER) | payer MEDICARE ==
[2025-02-22] MEDS ORDERED: Naloxone 0.4 MG/ML SDV IVPUSH PRN (14:37)
[2025-02-22] MEDS: HYDROmorphone 1 MG/ML Syringe IVPUSH ONE (14:47)
[2025-02-22] MEDS: Ondansetron 4 MG/2 ML SDV IVPUSH ONE (14:47)
[2025-02-22 14:59] LABS: BASOPHILS ABSOLUTE AUTO 0.03 10^3/uL (0.00-0.10); BASOPHILS PERCENT AUTO 0.4 % (0.0-1.0); HEMATOCRIT 37.7 % (37.0-47.0); HEMOGLOBIN 13.3 g/dL (12.0-16.0); IMMATURE GRAN ABSOLUTE AUTO 0.02 10^3/uL (0.00-0.04); IMMATURE GRAN PERCENT AUTO 0.3 % (0.0-0.4); LYMPHOCYTES ABSOLUTE AUTO 1.25 10^3/uL (1.00-4.00); LYMPHOCYTES PERCENT AUTO 16.3 % (20.0-40.0); MEAN CORPUSCULAR HEMOGLOBIN 30.8 pg (27.0-31.0); MEAN CORPUSCULAR HGB CONC 35.3 g/dL (32.0-36.0); MEAN CORPUSCULAR VOLUME 87.3 fL (82.0-92.0); MEAN PLATELET VOLUME 10.6 fL (7.4-10.4); MONOCYTES ABSOLUTE AUTO 0.38 10^3/uL (0.10-0.80); MONOCYTES PERCENT AUTO 4.9 % (2.0-8.0); NEUTROPHILS ABSOLUTE AUTO 6.01 10^3/uL (2.50-7.00); NEUTROPHILS PERCENT AUTO 78.1 % (50.0-70.0); PLATELET COUNT,PLT 240 10^3/uL (150-400); RED BLOOD CELL COUNT 4.32 10^6/uL (3.80-5.50); RED CELL DISTRIBUTION WIDTH 12.3 % (11.5-14.5); WHITE BLOOD CELL COUNT,WBC 7.69 10^3/uL (5.00-10.00)
[2025-02-22 15:15] LABS: ALANINE AMINOTRANSFERASE,ALT 25 U/L (14-63); ALKALINE PHOSPHATASE 78 U/L (46-116); ANION GAP 14.9 mmol/L (5-15); ASPARTATE AMNIOTRANSFERASE,AST 24 U/L (15-37); BILIRUBIN TOTAL 0.7 mg/dL (0.2-1.0); BLOOD UREA NITROGEN,BUN 15 mg/dL (7-18); CARBON DIOXIDE,CO2 24.6 mmol/L (21.0-32.0); CHLORIDE,CL 100 mmol/L (98-107); CREATININE 0.92 mg/dL (0.51-1.17); ESTIMATED GFR 67 mL/min (>=60); GLUCOSE RANDOM 114 mg/dL (70-140); POTASSIUM,K 3.5 mmol/L (3.5-5.1); PROTEIN TOTAL,TP 7.6 g/dL (6.4-8.2); SODIUM,NA 136 mmol/L (136-145)
[2025-02-22] MEDS: Iopamidol 755 Mg/ML 100 ML Bottle IV ONE (15:19)
[2025-02-22] MEDS: Sodium Chloride 0.9% 50 ML IV SCH (15:20)
[2025-02-22] MEDS: Diatrizoate Meglumine/Diatrizoate Sodium 37% 30 ML Bottle PO ONE (15:20)
[2025-02-22] MEDS: Sodium Chloride 0.9% 1,000 ML IV SCH (15:30)
== END 2025-02-22 16:50 | disposition home or self-care (01) ==
LOC: KA.ED 14:29
DX: R10.13 Epigastric pain (principal); I10 Essential (primary) hypertension; E78.00 Pure hypercholesterolemia, unspecified; I25.10 Atherosclerotic heart disease of native coronary artery without angina pectoris; K21.9 Gastro-esophageal reflux disease without esophagitis; Z79.899 Other long term (current) drug therapy; Z88.0 Allergy status to penicillin
CPT/HCPCS: 36415; 74177; 80053; 85025; 96374; 96375; 99284-25; J1171; J2405; J7030; Q9963; Q9967

== ENCOUNTER 2025-04-25 16:13 | Emergency (ER) | payer MEDICARE ==
[2025-04-25] MEDS ORDERED: Sodium Chloride 0.9% 10 ML Syringe FLUSH PRN (16:22)
[2025-04-25] MEDS ORDERED: Naloxone 0.4 MG/ML SDV IVPUSH PRN (16:24)
[2025-04-25 16:35] LABS: BASOPHILS ABSOLUTE AUTO 0.02 10^3/uL (0.00-0.10); BASOPHILS PERCENT AUTO 0.2 % (0.0-1.0); EOSINOPHILS ABSOLUTE AUTO 0.01 10^3/uL (0.10-0.30); EOSINOPHILS PERCENT AUTO 0.1 % (1.0-3.0); IMMATURE GRAN ABSOLUTE AUTO 0.02 10^3/uL (0.00-0.04); IMMATURE GRAN PERCENT AUTO 0.2 % (0.0-0.4); LYMPHOCYTES ABSOLUTE AUTO 0.71 10^3/uL (1.00-4.00); LYMPHOCYTES PERCENT AUTO 8.3 % (20.0-40.0); MEAN PLATELET VOLUME 10.2 fL (7.4-10.4); MONOCYTES ABSOLUTE AUTO 0.10 10^3/uL (0.10-0.80); MONOCYTES PERCENT AUTO 1.2 % (2.0-8.0); NEUTROPHILS ABSOLUTE AUTO 7.72 10^3/uL (2.50-7.00); NEUTROPHILS PERCENT AUTO 90.0 % (50.0-70.0); PLATELET COUNT,PLT 259 10^3/uL (150-400); RED BLOOD CELL COUNT 4.59 10^6/uL (3.80-5.50); RED CELL DISTRIBUTION WIDTH 12.4 % (11.5-14.5); WHITE BLOOD CELL COUNT,WBC 8.58 10^3/uL (5.00-10.00)
[2025-04-25] MEDS: Dicyclomine 20 MG/2 ML SDV IM ONE (16:39)
[2025-04-25] MEDS: Ondansetron 4 MG/2 ML SDV IVPUSH ONE (16:39)
[2025-04-25 16:49] LABS: B-TYPE NATRIURETIC PEPTIDE,BNP 63 pg/mL (0-100)
[2025-04-25 16:58] LABS: ALANINE AMINOTRANSFERASE,ALT 26 U/L (14-63); ASPARTATE AMNIOTRANSFERASE,AST 22 U/L (15-37); BILIRUBIN TOTAL 0.7 mg/dL (0.2-1.0); BLOOD UREA NITROGEN,BUN 17 mg/dL (7-18); CARBON DIOXIDE,CO2 26.8 mmol/L (21.0-32.0); CHLORIDE,CL 101 mmol/L (98-107); CREATININE 0.72 mg/dL (0.51-1.17); EST CRCL DRUG DOSING (CG) 52.97 mL/min; GLUCOSE RANDOM 128 mg/dL (70-140); POTASSIUM,K 3.9 mmol/L (3.5-5.1); PROTEIN TOTAL,TP 8.1 g/dL (6.4-8.2); SODIUM,NA 140 mmol/L (136-145)
[2025-04-25 16:59] LABS: ESTIMATED GFR 90 mL/min (>=60)
[2025-04-25] MEDS: Iopamidol 755 Mg/ML 100 ML Bottle IV ONE (17:06)
[2025-04-25] MEDS: Ondansetron 4 MG Tab.DIS PO ONE (18:26)
[2025-04-25] MEDS: Acetaminophen/HYDROcodone 325-5 MG Tab PO ONE (18:26)
== END 2025-04-25 18:32 | disposition home or self-care (01) ==
LOC: KA.ED 16:13
DX: K52.9 Noninfective gastroenteritis and colitis, unspecified (principal); N80.9 Endometriosis, unspecified; I10 Essential (primary) hypertension; E78.00 Pure hypercholesterolemia, unspecified; I25.10 Atherosclerotic heart disease of native coronary artery without angina pectoris; K21.9 Gastro-esophageal reflux disease without esophagitis; Z88.0 Allergy status to penicillin; Z79.51 Long term (current) use of inhaled steroids; Z79.899 Other long term (current) drug therapy
CPT/HCPCS: 36415; 74177; 80053; 82150; 83690; 83880; 84484; 85025; 86140; 96361; 96372; 96374; 96375; 99284; A9270; J0500; J1171; J2405; J7030; Q9967

== ENCOUNTER 2025-04-26 18:04 | Emergency (ER) | payer MEDICARE ==
[2025-04-26] MEDS: Sodium Chloride 0.9% 10 ML Syringe FLUSH PRN (18:45)
[2025-04-26] MEDS: Ondansetron 4 MG/2 ML SDV IVPUSH ONE (18:45)
[2025-04-26] MEDS: Acetaminophen/oxyCODONE 325-5 MG Tab PO ONE (19:38)
[2025-04-26] MEDS: Ondansetron 4 MG Tab.DIS PO ONE (19:38)
== END 2025-04-26 20:46 | disposition home or self-care (01) ==
LOC: KA.ED 18:04
DX: R11.0 Nausea (principal); R93.89 Abnormal findings on diagnostic imaging of other specified body structures; R10.9 Unspecified abdominal pain; I25.10 Atherosclerotic heart disease of native coronary artery without angina pectoris; E78.00 Pure hypercholesterolemia, unspecified; I10 Essential (primary) hypertension; K21.9 Gastro-esophageal reflux disease without esophagitis; Z88.0 Allergy status to penicillin; Z79.899 Other long term (current) drug therapy; Z79.51 Long term (current) use of inhaled steroids
CPT/HCPCS: 96374; 96375; 99283; A9270; J1171; J2405